=== PATIENT | female | born 1950 | race Caucasian/White ===

== ENCOUNTER 2024-07-02 09:20 | Day surgery (SDC) | payer OTHER ==
[2024-07-02 10:12] LABS: Absolute Eosinophils 0.1 K/uL (0-0.5); Absolute Lymphocytes (CBC) 1.3 K/uL (0.7-4.9); Absolute Monocytes 0.5 K/uL (0.1-1.3); Absolute Neutrophil 2.6 K/uL (1.8-8.0); Basophils % 0.8 % (0-1.3); Eosinophils % 2.2 % (0-4.4); Hematocrit 40.1 % (36.0-45.0); Hemoglobin 13.5 g/dL (12.0-15.0); Lymphocytes % 28.3 % (15.3-44.8); MCH 30.6 pg (27.0-35.0); MCHC 33.7 g/dL (32.0-36.0); MCV 90.9 fL (80-100); MPV 6.5 fL (7.6-11.3); Monocytes % 11.8 % (3.3-12.3); Neutrophils % 56.9 % (41.7-73.7); Nucleated Red Blood Cells % 0.1 % (0-0); Platelets 293 thou/uL (152-406); RBC Red Blood Cell Count 4.41 M/uL (3.86-4.86); Red Cell Distribution Width 13.8 % (12.1-15.2)
[2024-07-02 10:13] LABS: Anion Gap 10.4 mEq/L (5.0-15.0); Potassium 4.4 mEq/L (3.5-5.1)
--- NOTE | 2024-07-02 10:13 | RAD REPORT ---
EXAMINATION: TWO VIEW CHEST XR CLINICAL INDICATION: PREOP TECHNIQUE: 2 views of the chest was performed. COMPARISON: No prior exam. FINDINGS: The lungs are well inflated and clear. The heart is upper limit of normal in size. No displaced fract ures evident. IMPRESSION: No acute or significant abnormalities.
[2024-07-02] MEDS ORDERED: MIDAZOLAM HCL 2 MG/2 ML INJ ONE (11:03)
[2024-07-02] MEDS: Ringers Lactate 1,000 ML IV ONE (11:11)
[2024-07-02] MEDS: CIPROFLOXACIN 400mg IV 400 MG/200 ML BAG IV ONE (11:15)
[2024-07-02] MEDS ORDERED: LIDOCAINE 2% MPF 5 ML VIAL ONE (11:22)
[2024-07-02] MEDS ORDERED: ONDANSETRON 4 MG/2 ML VIAL ONE (11:22)
[2024-07-02] MEDS ORDERED: propofoL 200 MG/20 ML VIAL IV ONE (11:22)
[2024-07-02] MEDS ORDERED: FENTANYL CITR 100 MCG/2 ML ONE (11:23)
--- NOTE | 2024-07-02 12:02 | EKG ---
Test Date: 2024-07-02 Test Time: 10:46:38 Opthalmic Tech: KAYCE MEASUREMENT RESULTS: Intervals: Rate: 76 NH: QRSD: 72 QT: 374 QTc: 420 [place]: P: NH: QRS: 18 T: 38 INTERPRETIVE STATEMENTS: Atrial fibrillation Septal infarct, age undetermined Abnormal ECG No previous ECG available for comparison Electronically Signed On 07-02-24 12:01:23 [employer]ELD FOREM[employer] by Jorge Johnson
--- NOTE | 2024-07-02 13:14 | P.BOP ---
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
[2024-07-02 13:29] VITALS: TEMP 98
[2024-07-02 13:31] VITALS: O2SAT 100
[2024-07-02 13:32] VITALS: BP 114/72
--- NOTE | 2024-07-04 21:10 | OP ---
Surgeon: Marino Llamas MD Preoperative Diagnosis: Left forearm squamous cell carcinoma. Postoperative Diagnosis: Left forearm squamous cell carcinoma. Procedures: Wide excision with frozen section of left forearm squamous cell carcinoma, about 2 x 2 c m. Estimated Blood Loss: Less than 10 cc. Specimen: Skin mass. Findings: Margin free of tumor per Dr. Guajardo. Indications: This is a case of a female, who comes to us with squamous cell carcinoma, referred by felisha crum watershed program manager for wide excision. The benefits, alternatives, and risks of wide excision were full y explained, which include, but not limited to infection, bleeding, damage to adjacent structures, an esthesia complication, recurrence, AR, and even . She also understands this may not relieve sy mptoms. She might need more than one surgical intervention. She understood, signed a consent. The area of concern was marked by me and the patient in the holding room. Description Of Procedure: The patient was brought to the operating room, placed in supine position. Anesthesia was induced without complication. Forearm was prepped and draped in sterile fashion. A time-out was called. Local anesthesia was applied followed by a wide excision with gross negative ma rgins about 1 cm around. The mass was marked for orientation to the pathologist who confirmed the le daisha within the specimen and clear margins free of tumor. So, we proceeded to approximate the area w ith the help of 3-0 chromic and a running 3-0 nylon after hemostasis and local anesthesia was applied and also after irrigation. The patient tolerated the procedure well. [facility] JOSÉ MIGUEL/DARIELA Voice ID: [id number] Report ID: [id number]
== END 2024-07-02 13:04 | disposition home or self-care (01) ==
LOC: OR 09:20
PROVIDERS: ATTEND Surgery
PROC: 0HBEXZZ Excision of Left Lower Arm Skin, External Approach (ICD-10-PCS; principal; 2024-07-02 12:45)
DX: C44.629 Squamous cell carcinoma of skin of left upper limb, including shoulder (principal)
CPT/HCPCS: 93005; 85025; 80048; 36415; 88331; 88332; 88305; 71046; 11602; J2704; J2003; J2250; J2405; J0744; J7120; J3010